=== PATIENT | female | born 1975 ===

== ENCOUNTER 2024-03-07 17:38 | Emergency (ER) | payer OTHER, SELFPAY ==
[2024-03-07 17:44] VITALS: BP 177/93
--- NOTE | 2024-03-07 17:44 | ED.GENMED ---
History of Present Illness
General
Chief Complaint: Abdominal Pain
Source: patient
Exam Limitations: none
Time Seen by Provider: 03/07/24 17:40
Travel History
Have you had any contact with someone who has COVID-19?: No
Do you have any symptoms of coronavirus? Fever > 100 degrees, chills, cough, shortness of breath, sore throat, loss of taste or smell, muscle aches, or headache?: No
History of Present Illness
History of Present Illness:
See MDM
Past History
Past History
ED Past Medical History: None
ED Past Surgical History: Cholecystectomy
Social History
Tobacco: Non-smoker
Alcohol: None
Phy Exam
Physical Exam
Physical Exam:
See MDM
Course
Orders/Labs/Results
Orders:
Orders
03/07/24 17:43
CT Abd/pelvis W Iv Cont Urgent
Comment:
Reason For Exam: Mid abd pain, vomiting
0.9% Sodium Chloride 1000 ml [Nss] 1,000 ml IV BOLUS
Ketorolac [Toradol] 30 mg IV NOW STA
Ondansetron Injectable [Zofran] 4 mg IV NOW STA
03/07/24 17:49
Complete Blood Count/With Diff Urgent
Comprehensive Metabolic Panel Urgent
Lipase Urgent
03/07/24 19:31
Morphine Sulfate 4 mg IV NOW STA
Abnormal Lab Results
03/07/24
17:49
Absolute Monos (auto) 0.7 H 10^3/uL
(0.1-0.6)
Monocytes % 9.5 H %
(1.7-9.3)
Chloride 109 H mmol/L
(98-107)
Carbon Dioxide 19 L mmol/L
(22-30)
Creatinine 0.5 L mg/dL
(0.6-1.0)
Glucose 119 H mg/dl
(70-99)
03/07/24 17:49
03/07/24 17:49
Vital Signs
Initial and Last Documented VS:
Initial Vital Signs
Temp Pulse Resp BP Pulse Ox
99.0 F 85 19 177/93 95
03/07/24 17:44 03/07/24 17:44 03/07/24 17:44 03/07/24 17:44 03/07/24 17:44
Last Documented Vital Signs
Temp Pulse Resp BP Pulse Ox
99.0 F 72 18 147/91 97
03/07/24 17:44 03/07/24 20:45 03/07/24 19:47 03/07/24 20:00 03/07/24 20:45
MDM/Problems Addressed
Differential Diagnosis Includes:
HPI and MDM Narrative:
48-year-old female presenting with abdominal pain, nausea, vomiting and diarrhea. Symptoms started earlier today. She denies any sick contacts. Patient states she is concerned this could be related to gallbladder surgery 1 year ago. She states
that she required her gallbladder to be removed and had pancreatic issues because of it. She denies being on any medicines
On exam, patient is dry heaving. Will give IV fluids obtain CT given her prior history. Will give Zofran and Toradol.
Physical exam
General: Mildly uncomfortable
HEENT: protecting airway. Dry mucous membranes
Neck: appears supple
CV: No evidence of cyanosis
Resp: No accessory muscle use
Abd: Non-distended. Mid abdominal pain without rebound
Extremities: No deformities
Neuro: alert
Psych: Normal affect
Skin: Intact
Problems Addressed including Acute and Chronic Conditions affecting care:
1. Abdominal pain
Acuity: acute
Prognosis: stable
Details: Given her prior history, will obtain CT A/P. Will give Toradol
2. Nausea and vomiting
Acuity: acute
Prognosis: stable
Details: Will give Zofran and IV fluids
Updates
CT concerning for possible cecal volvulus. Case discussed with surgery who evaluated the CT. She appears to likely have a redundant cecum rather than obstruction. On reexamination, patient feeling better. I discussed the incidental findings on
the CT we went into depth about the possibilities. She was given a report of the CT. Patient states she is feeling much better. We discussed laxative for the constipation and follow-up with primary care
Differential Diagnosis (but not limited to): Pancreatitis, gastritis, viral gastroenteritis, colitis
Testing considered: Right upper quadrant ultrasound
Drug therapy (if applicable): OTC meds, please see d/c instruction regarding Rx drugs
Amount and/or Complexity of Data Reviewed
Clinical info obtained from: Patient
External data reviewed: N/A
Labs I independently reviewed (but not limited to): White blood cell count normal
Radiology: The CT scan was personally and independently reviewed. In addition, official CT report reviewed.
Pulse Ox: not hypoxic
EKG independently reviewed: N/A
Roller Repairer: N/A
Critical Care: N/A
Risk of Complication:
Social Determinants of health: Good social support
Discussed with other providers: General surgeon
Escalation of Care includes Admit/Obs: After being observed in the Emergency Department, pt stable for discharge.
Occasional wrong word or 'sound a like' substitutions may have occurred due to the inherent limitations of voice recognition software. Read the chart carefully and recognize, using context, where substitutions have occurred.
*Critical Care Note
Total Time (30-74mins, 75-104mins- exclusive of procedures): Not Applicable
ED Attending Note
-
Portions of this chart may have been created with voice recognition software.� Occasional wrong word or��sound alike� substitutions may have occurred due to the inherent limitations of voice recognition software.
Discharge Plan
Departure
Patient Disposition: Home (Routine Discharge)
Date of Disposition: 03/07/24
Time of Disposition: 20:55
Patient with high blood pressure during this ER visit?: Yes
Discharge Problem:
Constipation
Instructions: Constipation, Adult (DC), BLOOD PRESSURE
Referrals:
UNKNOWN - PT DOES,NOT KNOW [Family Provider] -
Activity Restrictions/Additional Instructions:
Please return for any worsening symptoms.
You may return at any time if you have further concerns.
Please follow up with your doctor at the first available appointment, preferably this week. Please bring the CT report to discuss the incidental findings.
Please take MiraLAX for the next few days to help with constipation.
Thank you for choosing [facility].
Interventions
Interventions:
*Risk Screen - Suicide Last Done: 03/07/24 17:44
*General Assessment Last Done: 03/07/24 17:44
*Neglect/Abuse Screening Last Done: 03/07/24 17:44
ED- Fall Risk Assessment Last Done: 03/07/24 18:45
*ED COVID-19 Vaccine History Last Done: 03/07/24 17:44
JO-Gjmels-Motoxsvicv Assessment Last Done: 03/07/24 18:45
Discharge Date and Time
Print Language: [id number]
[2024-03-07] MEDS: ZOFRAN 4 MG IV (17:51)
[2024-03-07] MEDS: TORADOL 30 MG IV (17:51)
[2024-03-07] MEDS: NSS 1000 IV (17:52)
[2024-03-07 17:54] LABS: % Basophils 0.4 % (0-2); % Eosinophils 1.8 % (0-6); % Immature Granulocytes 0.4 % (0-0.5); % Monocytes 9.5 % (1.7-9.3); % Neutrophils 48.9 % (42.2-75.2); Absolute Eosinophils 0.1 10^3/uL (0-0.7); Absolute Monocytes 0.7 10^3/uL (0.1-0.6); Absolute Neutrophils 3.8 10^3/uL (1.4-6.5); Mean Corp Hgb Conc. 35.1 g/dL (33.0-37.0); Mean Corpuscular Hgb 29.4 pg (27.0-31.0); Mean Corpuscular Volume 83.7 fL (81.0-99.0); Nucleated Red Blood Cells % 0 %; Platelet Count 329 10^3/uL (130-400); Red Blood Cell Count 4.42 10^6/uL (4.20-5.40); Red Cell Dist. Width 12.8 % (11.5-14.5); White Blood Cell Count 7.7 10^3/uL (4.8-10.8)
[2024-03-07 18:12] LABS: ALT (SGPT) 21 U/L (0-35); AST (SGOT) 23 U/L (14-36); Albumin 4.7 g/dl (3.5-5.0); Alkaline Phosphatase 83 U/L (38-126); Blood Urea Nitrogen 12 mg/dl (7-17); Calcium 9.8 mg/dl (8.4-10.2); Carbon Dioxide 19 mmol/L (22-30); Chloride 109 mmol/L (98-107); Glucose 119 mg/dl (70-99); Lipase 74 U/L (23-300); Potassium 3.8 mmol/L (3.5-5.1); Sodium 138 mmol/L (135-145); Total Bilirubin 0.3 mg/dl (0.2-1.3); Total Protein 7.8 g/dl (6.3-8.2); eGFR > 60.00
[2024-03-07 19:18] VITALS: BP 147/82
[2024-03-07] MEDS: MORPHINE SULFATE 4 MG IV (19:46)
[2024-03-07 19:47] VITALS: BP 147/82
[2024-03-07 20:00] VITALS: BP 147/91
== END 2024-03-07 21:11 | disposition home or self-care (01) ==
LOC: EMR 17:38
PROVIDERS: EMERGENCY PHYSICIAN Student in an Organized Health Care Education/Training Program
DX: K59.00 Constipation, unspecified (principal)
CPT/HCPCS: 99285; 96374; 96375 ×2; 96361; 74177; 80053; 83690; 85025; Q9967